=== PATIENT | male | born 1985 | race Caucasian/White ===

== ENCOUNTER 2021-06-08 11:43 | Day surgery (SDC) | payer BC, OTHER ==
[2021-06-06 15:01] VITALS: BMI 27.3
[~2021-06-08 11:43] MED LIST: LACTATED RINGERS 1,000 ML IV SCH
[2021-06-08 13:02] VITALS: TEMP 98
--- NOTE | 2021-06-08 14:31 | P.PCN ---
Date of Procedure: 06/08/21 Procedure(s) Performed: BRIEF HISTORY: Patient is a 36-year-old pleasant male scheduled for an elective colonoscopy as a part of surveillance and history of Crohn's colitis diagnosed in 2001. He is currently maintained on Pentasa 1 g 4 times daily and remains in clinical remission. Last colonoscopy was in 2017. PROCEDURE PERFORMED: Colonoscopy with random biopsy. PREOPERATIVE DIAGNOSIS: Long-standing history of Crohn's colitis. IV sedation per Anesthesia. PROCEDURE: After informed consent was obtained, the patient, was brought into the endoscopy unit. IV sedation was administered by Anesthesia under continuous monitoring. Digital rectal examination was normal. Initially the Olympus CF-160 flexible video colonoscope was then inserted in the rectum, gradually advanced into the mid ascending colon where a stricture was encountered. The scope was removed and a pediatric colonoscopy was in the rectum and gradually advanced into the sigmoid colon and despite multiple attempts I was not able to advance the scope through the stricture because of quite friability of the mucosa and ulcerations and biopsies were done from this area. The rest of the, ascending colon, transverse colon, descending colon, sigmoid colon, appeared normal. In the proximal rectum and rectosigmoid colon there was cobblestoning of the mucosa with mild narrowing noted and biopsies were also done from this area. The Retroflexion was performed in the rectum and no lesions were seen. The patient tolerated the procedure well. IMPRESSION: Stricture of the mid ascending colon with ulcerations and mucosal friability status post biopsy Mild cobblestoning of the mucosa with narrowing noted in the rectosigmoid colon status post biopsies Rest of the colon appeared normal RECOMMENDATIONS: Findings of this examination were discussed with the patient as well as his family. He was advised to follow with the biopsy results. He'll be seen in office in 2 weeks.. We will consider biologic for active Crohn's disease.
[2021-06-08 15:05] VITALS: BP 118/64; PULSE 87; RESP 16
== END 2021-06-08 15:50 | disposition home or self-care (01) ==
LOC: ORWHC2ENDO 11:43
PROVIDERS: ATTEND Internal Medicine Gastroenterology
DX: K50.10 Crohn's disease of large intestine without complications (principal); K56.699 Other intestinal obstruction unspecified as to partial versus complete obstruction
CPT/HCPCS: 45380; 88305

== ENCOUNTER → 2021-06-27 | Outpatient (CLI) | payer BC, OTHER ==
[2021-06-27 22:35] LABS: Basophils # (A) 0.02 X 10*3/uL (0.00-0.10); Basophils % (A) 0.2 %; Eosinophils # (A) 0.31 X 10*3/uL (0.04-0.35); Eosinophils % (A) 3.2 %; HCT 42.6 % (39.6-50.0); HGB 13.4 g/dL (13.0-17.0); Immature Grans, Automated 0.3 %; Lymphocytes # (A) 1.99 X 10*3/uL (0.90-5.00); Lymphocytes % (A) 20.4 %; MCH 26.3 pg (27.0-32.0); MCHC 31.5 g/dL (32.0-37.0); MCV 83.5 fL (80.0-97.0); Mean Platelet Volume 9.8 fL (9.5-12.2); Monocytes # (A) 0.82 X 10*3/uL (0.20-1.00); Monocytes % (A) 8.4 %; NRBC Per 100 WBC 0 /100 WBCS (0.0-0.0); Neutrophils # (A) 6.58 X 10*3/uL (1.80-7.70); Neutrophils % (A) 67.5 %; Platelet Count 414 X 10*3/uL (140-440); RDW 13.3 % (11.5-14.5); WBC 9.75 X 10*3/uL (4.50-10.00)
[2021-06-27 22:53] LABS: Albumin/Globulin Ratio 1.4 (1.60-3.17); Anion Gap 10.8 mmol/L (10.00-18.00); BUN/Creat Ratio 12.22 Ratio (12.00-20.00); Blood Urea Nitrogen 10.8 mg/dL (9.0-27.0); Carbon Dioxide 24.3 mmol/L (20.0-27.5); Globulin 2.9 g/dL (1.6-3.3); Non-African American GFR(CKD) 109.5 (60.0-200.0); Potassium 4.2 mmol/L (3.5-5.5); Total Bilirubin 0.2 mg/dL (0.30-1.20); Total Protein 6.9 g/dL (6.2-8.2)
[2021-06-27 23:38] LABS: Hepatitis B Surface Antigen Nonreactive (Nonreactive)
[2021-06-27 23:50] LABS: Erythrocyte Sedimentation Rate 23 mm/Hr (0-15)
== END | disposition home or self-care (01) ==
LOC: LABWHC1 15:39
PROVIDERS: ATTEND Internal Medicine Gastroenterology
DX: K50.10 Crohn's disease of large intestine without complications (principal)
CPT/HCPCS: 36415; 80053; 85025; 85652; 86140; 86480; 86704; 87340

== ENCOUNTER 2023-06-25 08:29 | Day surgery (SDC) | payer BC, OTHER ==
[2023-06-25] MEDS: LACTATED RINGERS 1,000 ML IV SCH (09:36)
[2023-06-25 09:42] VITALS: TEMP 96.8
[2023-06-25] MEDS ORDERED: PROPOFOL 10 MG/ML 20 ML VIAL IV ONE (10:02)
--- NOTE | 2023-06-25 10:21 | P.PCN ---
Date of Procedure: 06/25/23 Procedure(s) Performed: BRIEF HISTORY: Patient is a 38-year-old pleasant white male scheduled for an elective colonoscopy as a part of surveillance of long-standing history of Crohn's colitis diagnosed at age 24. He is currently maintained on insufflated infusions every 8 weeks since 2021. Last colonoscopy in May 2021 revealed structure the mid ascending colon with active colitis and active colitis in the rectosigmoid colon. Lately has been having 1 or 2 bowel movements daily and remains in clinical remission. PROCEDURE PERFORMED: Colonoscopy with random biopsy. PREOPERATIVE DIAGNOSIS: Long-standing history of Crohn's colitis. IV sedation per Anesthesia. PROCEDURE: After informed consent was obtained, the patient, was brought into the endoscopy unit. IV sedation was administered by Anesthesia under continuous monitoring. Digital rectal examination was normal. Initially the Olympus CF-160 flexible video colonoscope was then inserted in the rectum, gradually advanced into the right colon without any difficulty. The tight mid ascending colon surgery identified and despite multiple times I was not able to advance the scope through the stricture. There was cobblestoning of the mucosa noted at the site of the stricture but no active colitis seen. Biopsies were done from the stricture. Mucosa of the ascending colon, transverse colon, descending colon, sigmoid colon, appeared normal. and rectosigmoid colon at 18-22 cm from the anal verge there was mild narrowing of the lumen with cobblestoning of the mucosa identified and multiple biopsies were done from this area also. Scattered sigmoid diverticula seen. Scattered sigmoid diverticulosis. Biopsies were done from every 10 cm intervals to rule out dysplasia. Retroflexion was performed in the rectum and no lesions were seen. The patient tolerated the procedure well. IMPRESSION: Tight stricture in the mid ascending colon with cobblestoning of the mucosa but no active colitis seen status post multiple biopsies. Scope could not be advanced through the stricture Cobblestoning of the mucosa and with mild narrowing of the rectosigmoid colon at the distal sigmoid colon between 18-22 cm from the anal verge is post multiple biopsies No active colitis seen RECOMMENDATIONS: Findings of this examination were discussed with the patient as well as his family. He was advised to follow with the biopsy results..If the biopsies do not show any evidence of dysplasia, repeat surveillance colonoscopy every 2 years. Follow up in office as scheduled in 3 months
[2023-06-25] MEDS ORDERED: ACETAMINOPHEN TAB 500 MG TAB ONE (10:42)
[2023-06-25] MEDS: ACETAMINOPHEN TAB 500 MG TAB PO ONE (10:51)
[2023-06-25 10:56] VITALS: BP 124/73; PULSE 84; RESP 18
== END 2023-06-25 11:08 | disposition home or self-care (01) ==
LOC: ORWHC2ENDO 08:29
PROVIDERS: ATTEND Internal Medicine Gastroenterology
DX: K50.10 Crohn's disease of large intestine without complications (principal); K52.9 Noninfective gastroenteritis and colitis, unspecified; Z79.899 Other long term (current) drug therapy
CPT/HCPCS: 88305; 45380; J2704